=== PATIENT | male | born 1965 | race Caucasian/White ===

== ENCOUNTER 2019-04-26 10:37 | Outpatient (CLI) | payer OTHER ==
[~2019-04-26 10:37] MED LIST: LEVSIN0.125 MG PO; ZANTAC300 MG PO; ZOFRAN4 MG PO
== END 2019-04-26 10:50 | disposition home or self-care (01) ==
LOC: RAD 10:37
DX: N40.0 Benign prostatic hyperplasia without lower urinary tract symptoms (principal)

== ENCOUNTER 2019-06-04 18:45 | Emergency (ER) | payer OTHER ==
[~2019-06-04] VITALS: Ht 175.3 cm; Wt 77.1 kg
[2019-06-04] MEDS ORDERED: KETO10TA2 PO (21:59)
[2019-06-04] MEDS ORDERED: NORFLEX100MG PO (21:59)
== END 2019-06-04 22:10 ==
LOC: ER 18:45
DX: M94.0 Chondrocostal junction syndrome [Tietze] (principal); R07.89 Other chest pain

== ENCOUNTER 2020-02-27 13:50 | Outpatient (CLI) | payer OTHER ==
[~2020-02-27 13:50] MED LIST changes: +KETO10TA2 PO; +NORFLEX100MG PO
== END 2020-02-27 14:03 | disposition home or self-care (01) ==
LOC: SONOGRAMA 13:50
PROVIDERS: ATTEND Internal Medicine Cardiovascular Disease
DX: E03.8 Other specified hypothyroidism (principal)

== ENCOUNTER 2020-06-03 14:13 | Outpatient (CLI) | payer OTHER | END 2020-06-03 14:20 | disposition home or self-care (01) | LOC: RAD 14:13 | PROVIDERS: ATTEND Urology | DX: N20.0 Calculus of kidney (principal) ==

== ENCOUNTER 2020-06-13 08:50 | Outpatient (CLI) | payer OTHER | END 2020-06-13 09:10 | disposition home or self-care (01) | LOC: TOM 08:50 | PROVIDERS: ATTEND Urology | DX: R31.0 Gross hematuria (principal) ==

== ENCOUNTER → 2020-09-11 | Day surgery (SDC) | payer OTHER ==
[~2020-09-11] MED LIST changes: +CRESTOR10 MG PO; +MIRALAX17 GM PO; +NEURONTIN300 MG PO; +TAMS0.4C PO; +TOPROL XL25 M1 PO; +TYLENOL ARTHRI650 MG PO; +ULTRAM50 MG PO; +ZESTRIL20 MG PO
== END | disposition home or self-care (01) ==
LOC: ADM 09-04 09:30 → CIR.AMB 09:30
PROVIDERS: ATTEND Surgery
DX: K40.90 Unilateral inguinal hernia, without obstruction or gangrene, not specified as recurrent (principal); K42.9 Umbilical hernia without obstruction or gangrene; Z20.828 Contact with and (suspected) exposure to other viral communicable diseases

== ENCOUNTER 2021-03-19 15:00 | Emergency (ER) | payer OTHER ==
[~2021-03-19] VITALS: Ht 175.3 cm; Wt 72.6 kg
[2021-03-19] MEDS ORDERED: KETO10TA2 PO (17:14)
[2021-03-19] MEDS ORDERED: NORFLEX100MG PO (17:14)
== END 2021-03-19 17:22 | disposition home or self-care (01) ==
LOC: ER 15:00
DX: M25.512 Pain in left shoulder (principal)

== ENCOUNTER → 2021-08-28 | Outpatient (CLI) | payer OTHER | END | disposition home or self-care (01) | LOC: RAD 09:27 | DX: M77.31 Calcaneal spur, right foot (principal) ==

== ENCOUNTER 2021-11-13 19:52 | Emergency (ER) | payer OTHER ==
[~2021-11-13] VITALS: Ht 175.3 cm; Wt 68.0 kg
== END 2021-11-14 01:30 | disposition home or self-care (01) ==
LOC: ER 19:52
DX: N45.1 Epididymitis (principal); N39.0 Urinary tract infection, site not specified

== ENCOUNTER 2022-06-05 14:18 | Emergency (ER) | payer OTHER ==
[~2022-06-05] VITALS: Ht 175.3 cm; Wt 77.1 kg
== END 2022-06-05 17:13 | disposition home or self-care (01) ==
LOC: ER 14:18
DX: M54.2 Cervicalgia (principal); Z88.8 Allergy status to other drugs, medicaments and biological substances

== ENCOUNTER 2022-06-10 01:23 | Emergency (ER) | payer OTHER ==
[~2022-06-10] VITALS: Ht 175.3 cm; Wt 77.1 kg
[2022-06-10] MEDS ORDERED: ORPHENADRINE C100 MG PO ×2 (03:46→03:47)
[2022-06-10] MEDS ORDERED: KETO10TA2 PO ×2 (03:47)
== END 2022-06-10 03:56 | disposition home or self-care (01) ==
LOC: ER 01:23
DX: M62.838 Other muscle spasm (principal); Z88.8 Allergy status to other drugs, medicaments and biological substances

== ENCOUNTER → 2023-01-14 | Emergency (ER) | payer OTHER ==
[~2023-01-14] VITALS: Ht 175.3 cm; Wt 77.1 kg
[~2023-01-14] MED LIST changes: +ORPHENADRINE C100 MG PO
== END | disposition left against medical advice (07) ==
LOC: ER 14:08
DX: Z53.21 Procedure and treatment not carried out due to patient leaving prior to being seen by health care provider (principal); R10.9 Unspecified abdominal pain; Z88.8 Allergy status to other drugs, medicaments and biological substances

== ENCOUNTER 2023-02-18 13:23 | Outpatient (CLI) | payer OTHER | END 2023-02-18 13:28 | disposition home or self-care (01) | LOC: RAD 13:23 | PROVIDERS: ATTEND Specialist | DX: N20.0 Calculus of kidney (principal) ==

== ENCOUNTER → 2023-08-10 | Outpatient (CLI) | payer OTHER | END | disposition home or self-care (01) | LOC: TOM 13:12 | PROVIDERS: ATTEND Specialist | DX: N20.0 Calculus of kidney (principal); N30.00 Acute cystitis without hematuria ==

== ENCOUNTER 2023-11-21 12:12 | Outpatient (CLI) | payer OTHER | END 2023-11-21 12:23 | disposition home or self-care (01) | LOC: RAD 12:12 | PROVIDERS: ATTEND Physical Medicine & Rehabilitation | DX: M75.52 Bursitis of left shoulder (principal) ==